=== PATIENT | female | born 2000 | race Caucasian/White ===

== ENCOUNTER 2021-08-10 03:15 | Emergency (ER) | payer BC ==
[~2021-08-10] VITALS: Ht 149.9 cm; Wt 42.7 kg
[2021-08-10 03:18] VITALS: BP 113/65
== END 2021-08-10 08:41 | disposition left against medical advice (07) ==
LOC: ER 03:15
DX: Z53.21 Procedure and treatment not carried out due to patient leaving prior to being seen by health care provider (principal); R06.02 Shortness of breath
CPT/HCPCS: 93005; Z7610